=== PATIENT | male | born 1990 | race Caucasian/White ===

== ENCOUNTER 2018-04-18 12:18 | Emergency (ER) | payer SELFPAY ==
[~2018-04-18] VITALS: Ht 165.1 cm; Wt 86.2 kg
[2018-04-18 12:45] VITALS: BP 160/99
[2018-04-18 13:40] LABS: Basophils # (auto) 0 uL; Basophils % (auto) 0.2 % (0.0-2.0); Eosinophils # (auto) 0 uL; Hemoglobin 15.5 g/dL (13.5-17.5); Lymphocytes # (auto) 0.5 uL; Mean Corpuscular Hemoglobin 30.7 pg (28.0-32.0); Mean Corpuscular Hgb Conc. 34.4 g/dL (32.0-36.0); Mean Corpuscular Volume 89.2 fL (80.0-100.0); Monocytes # (auto) 0.8 uL; Monocytes % (auto) 6.2 % (0.0-12.0); Neutrophils % (auto) 89.6 % (37.0-80.0); Nucleated Red Blood Cells % 0.1 %; Platelet Count (auto) 195 10^3/uL (140-450); Red Blood Cells 5.04 10^6/uL (4.5-5.90); Red Cell Distribution Width 15.5 % (11.8-14.3); White Blood Cell 12.3 10^3/uL (4.4-10.8)
[2018-04-18 13:52] LABS: Alanine Aminotransferase 63 U/L (16-61); Albumin 4.3 g/dL (3.4-5.0); Anion Gap 7 (5-15); Aspartate Aminotransferase 46 U/L (15-37); BUN/Creatinine Ratio 12.5; Blood Alcohol < 3.0 mg/dL (0-5); Blood Urea Nitrogen 12 mg/dL (7-18); Calcium 8.7 mg/dL (8.5-10.1); Carbon Dioxide 28 mmol/L (21-32); Chloride 103 mmol/L (98-107); GFR African American 119 mL/min; GFR Non-African American 98 mL/min; Glucose 111 mg/dL (74-106); Sodium 138 mmol/L (136-145)
[2018-04-18 13:55] LABS: Alkaline Phosphatase 46 U/L (45-117); Bilirubin, Total 0.7 mg/dL (0.2-1.0); Total Protein 7.8 g/dL (6.4-8.2)
== END 2018-04-18 21:39 | disposition left against medical advice (07) ==
LOC: ER 12:22
DX: R56.9 Unspecified convulsions (principal); R51 Headache; Z53.21 Procedure and treatment not carried out due to patient leaving prior to being seen by health care provider
CPT/HCPCS: 36415; 70450; 80053; 80320; 85025

== ENCOUNTER 2025-04-12 20:11 | Emergency (ER) | payer MEDICAID ==
[~2025-04-12] VITALS: Ht 165.1 cm; Wt 75.8 kg
--- NOTE | 2025-04-12 21:12 | DVH ---
EXAM: CT HEAD WITHOUT CONTRAST INDICATION: EYE SWELLING TECHNIQUE: CT of the head without intravenous contrast. Radiation Dose : 1. Head: CT Dose: CTDI volume is 60.5 mGy. Dose-length product is 1192.8 mGy*cm The dose indicators for CT are the volume Computed Tomography (CT) Dose Index (CTDIvol) and the Dose Length Product (DLP), and are measured in units of mGy and mGy-cm, respectively. These indicators are not patient dose, but values generated from the CT scanner acquisition factors. The report includes radiation exposure data for exposures received during this examination. COMPARISON: None FINDINGS: The cerebral parenchyma appears to be normal configuration and attenuation. The ventricles, cisterns, and sulci appear age-appropriate. There is no evidence for acute territorial infarct, hemorrhage, or mass effect. There is an acute inferior left orbital blowout fracture with herniation of orbital contents and the inferior rectus muscle. There is an acute fracture through the lateral wall of the left maxillary sinus. Blood products layer within the left maxillary antrum. There is mild left proptosis and left concha orbital swelling. There is left retrobulbar stranding/blood products. Scattered gas is seen in the region of the left orbit. IMPRESSION: 1. No acute intracranial hemorrhage. 2. Acute left inferior orbital blowout fracture with presumed entrapment of the left inferior rectus muscle. Left retrobulbar stranding/ hemorrhage is seen along with mild left proptosis. Correlation with emergent ophthalmologic examination is suggested. 3. Additional findings as detailed. Radiation optimization: All CT scans at this facility use at least one of these dose optimization techniques: automated exposure control mA and/or kV adjustment per patient size (includes targeted exams where dose is matched to clinical indication) or iterative reconstruction.
--- NOTE | 2025-04-12 22:12 | ED.PDOC ---
History of Present Illness HPI Comments 34-year-old male who came to ER for eye problems. Patient has history of chronic alcoholism and seizures. States last seizure episode was 3 months ago, and he does not take any seizure medications. States last alcohol drink was last night. Patient was asleep when he woke up with left periorbital pain and s welling. Patient states he possibly had a seizure episode when he was asleep. Patient complaining of left eye pain and left-sided headaches, with nausea and vomiting Chief Complaint: Eye Problem Time Seen by MD: 22:12 Primary Care Provider: NONE Reviewed Notes: Nurses Notes Allergies: Coded Allergies: NO KNOWN ALLERGIES (Unverified , 04/18/18) Information Source: Patient Mode of Arrival: Ambulatory Past Medical History PAST MEDICAL HISTORY: Seizures Past Medical History (Other): Chronic alcoholism Surgical History: Denies all surgeries Family History Family History: Reviewed,noncontributory to illness Social History Smoker: Non-Smoker Alcohol: Heavy Drugs: Denies Drug Use Lives In: Home Constitutional: denies: chills, diaphoresis, fatigue, fever, malaise, sweats, weakness, others EENTM: reports: eye pain (Left), eye redness (Left); denies: blurred vision, double vision, ear bleeding, ear discharge, ear drainage, ear pain, ear ringing, hearing loss, mouth pain, mouth swelling, nasal discharge, nose bleeding, nose congestion, nose pain, photophobia, tearing, throat pain, throat swelling, voice changes, others Respiratory: denies: cough, hemoptysis, orthopnea, SOB at rest, shortness of breath, SOB with excertion, stridor, wheezing, others Cardiovascular: denies: chest pain, dizzy spells, diaphoresis, Dyspnea on exertion, edema, irregular heart beat, left arm pain, lightheadedness, palpitations, PND, syncope, others Gastrointestinal: denies: abdomen distended, abdominal pain, blood streaked bowels, constipated, diarrhea, dysphagia, difficulty swallowing, hematemesis, melena, nausea, poor appetite, poor fluid intake, rectal bleeding, rectal pain, vomiting, others Genitourinary: denies: burning, dysuria, flank pain, frequency, hematuria, incontinence, penile discharge, penile sore, pain, testicle pain, testicle swelling, urgency, others Neurological: denies: dizziness, fainting, headache, left sided numbness, left sided weakness, numbness, paresthesia, pre-existing deficit, right sided numbness, right sided weakness, seizure, speech problems, tingling, tremors, weakness, others Musculoskeletal: denies: back pain, gout, joint pain, joint swelling, muscle pain, muscle stiffness, neck pain, others Integumetry: denies: bruises, change in color, change in hair/nails, dryness, laceration, lesions, lumps, rash, wounds, others Allergic/Immunocompromised: denies: Difficulty Healing, Frequent Infections, Hi ves, Itching, others Hematologic/Lymphatic: denies: anemia, blood clots, easy bleeding, easy bruising, swollen glands, others Endocrine: denies: excessive hunger, excessive sweating, excessive thirst, excessive urination, flushing, intolerance to cold, intolerance to heat, unexplained weight gain, unexplained weight loss, others Psychiatric: denies: anxiety, bipolar disorder, depression, hopeless, panic disorder, schizophrenia, sleepless, suicidal, others Physical Exam General Appearance: No Apparent Distress, Normal HEENT: Normal ENT Inspection, Pharynx Normal, TMs Normal, Other (Left periorbital hematoma) Neck: Full Range of Motion, Non-Tender, Normal, Normal Inspection Respiratory: Chest Non-Tender, Lungs Clear, No Accessory Muscle Use, No Respiratory Distress, Normal Breath Sounds Cardiovascular: No Edema, No JVD, No Murmur, No Gallop, Normal Peripheral Pulses, Regular Rate/Rhythm Breast Exam: Deferred Gastrointestinal: No Organomegaly, Non Tender, No Pulsatile Mass, Normal Bowel Sounds, Soft Genitalia: Deferred Pelvic: Deferred Rectal: Deferred Extremities: No calf tenderness, Normal capillary refill, Normal inspection, Normal range of motion, Non-tender, No pedal edema Musculoskeletal : Apperance: Normal Neurologic: Alert, able bodied seaman II-XII nml as Tested, No Motor Deficits, Normal Affect, Normal Mood, No Sensory Deficits Cerebellar Function: Normal Reflexes: Normal Skin: Dry, Normal Color, Warm Lymphatic: No Adenopathy Was a procedure done? Was a procedure done?: No Differential Dx Considerations may include: Chronic alcoholism, seizures, periorbital hematoma, headaches X-Ray, Labs, Meds, VS Vital Signs Date Time Temp Pulse Resp B/P (MAP) Pulse Ox O2 Delivery O2 Flow Rate FiO2 12/27/25 20:13 97.3 112 19 135/104 97 97.3 EXAM: CT HEAD WITHOUT CONTRAST INDICATION: EYE SWELLING TECHNIQUE: CT of the head without intravenous contrast. Radiation Dose : 1. Head: CT Dose: CTDI volume is 60.5 mGy. Dose-length product is 1192.8 mGy*cm The dose indicators for CT are the volume Computed Tomography (CT) Dose Index (CTDIvol) and the Dose Length Product (DLP), and are measured in units of mGy and mGy-cm, respectively. These indicators are not patient dose, but values generated from the CT scanner acquisition factors. The report includes radiation exposure data for exposures received during this examination. COMPARISON: None FINDINGS: The cerebral parenchyma appears to be normal configuration and attenuation. The ventricles, cisterns, and sulci appear age-appropriate. There is no evidence for acute territorial infarct, hemorrhage, or mass effect. There is an acute inferior left orbital blowout fracture with herniation of orbital contents and the inferior rectus muscle. There is an acute fracture through the lateral wall of the left maxillary sinus. Blood products layer within the left maxillary antrum. There is mild left proptosis and left periorbital swelling. There is left retrobulbar stranding/blood products. Scattered gas is seen in the region of the left orbit. IMPRESSION: 1. No acute intracranial hemorrhage. 2. Acute left inferior orbital blowout fracture with presumed entrapment of the left inferior rectus muscle. Left retrobulbar stranding/ hemorrhage is seen along with mild left proptosis. Correlation with emergent ophthalmologic examination is suggested. 3. Additional findings as detailed. Radiation optimization: All CT scans at this facility use at least one of these dose optimization techniques: automated exposure control mA and/or kV adjustment per patient size (includes targeted exams where dose is matched to clinical indication) or iterative reconstruction. Time of 1ST Reevaluation: 22:09 Reevaluation 1ST: Unchanged Patient Education/Counseling: Diagnosis, Treatment Family Education/Counseling: No Family Present SEPSIS Sepsis Screen Date sepsis recognized/suspect: Apr 12, 2025 Time Sepsis recognized/suspect: 2016 Recent Procedure: No On Antibiotic Therapy: No Respiratory Rate >20: No Heart Rate >90: No Temp<36 C (96.8 F) or >38.3 C: No SBP <90 or MAP <65 mmHG: No New Acute Mental Status Change: No Is the patient on CPAP, BIPAP,: No Physician Orders Head Without Contrast (04/12/25 20:27) Complete Blood Count (04/12/25 22:14) Comprehensive Metabolic Panel (04/12/25 22:14) PTPTT (04/12/25 22:14) Urinalysis (04/12/25 22:14) Drug Screen (04/12/25 22:14) Collateral Specialist (04/12/25 22:14) Sodium Chloride 0.9% (04/12/25 22:15) Magnesium (04/12/25 22:14) Blood Alcohol (04/12/25 22:14) Vital Signs Date Time Temp Pulse Resp B/P (MAP) Pulse Ox O2 Delivery O2 Flow Rate FiO2 04/12/25 20:13 97.3 112 19 135/104 97 97.3 Departure 1 Departure Time of Disposition: 22:00 Impression: Primary Impression: Closed blow-out fracture of left orbital floor Additional Impressions: Inferior rectus muscle entrapment, left eye Seizure History of alcohol abuse Disposition: 02 [facility]ORT TERM HOSPITAL Admit to: Med Surg Condition: Guarded Comments 34-year-old male with a history of alcohol abuse and prior seizures now with suspected seizure at home and he hit his left eye area and has severe pain. There is bruising noted and subconjunctival hemorrhage. He gets double vision when he tries to move the eye. CT of the scan shows left orbital blowout fracture and there is entrapment of the left inferior rectus muscle. I contacted [facility] and discussed the case with Dr. Marr who accepts the patient for transfer. He will need to be transferred for Ophthalmology and trauma consultation Critical Care Note Critical Care Time?: Yes (35 min-critical care time only) Critical care comment: Total critical care time: Approximately 36 minutes Due to a high probability of clinically significant, life threatening deteriorat ion, the patient required my highest level of preparedness to intervene emergently and I personally spent this critical care time directly and personally managing the patient. This critical care time included obtaining a history; examining the patient; pulse oximetry; ordering and review of studies; arranging urgent treatment with development of a management plan; evaluation of patient's response to treatment; frequent reassessment; and, discussions with other providers. This critical care time was performed to assess and manage the high probability of imminent, life-threatening deterioration that could result in multi-organ failure. It was exclusive of separately billable procedures and treating other patients. Stability Stability form required: No Heart Score Heart Score: Heart Score Response (Comments) Value History N/A 0 EKG N/A 0 Age N/A 0 Risk Factors N/A 0 Troponin N/A 0 Total 0 I personally scribed for JACKIE AMBROSE MD ([email or web address]) on 04/12/25 at 22:12. Electronically submitted by Markus Oakley ([email or web address]). I personally scribed for JACKIE AMBROSE MD ([email or web address]) on 04/12/25 at 22:13. Electronically submitted by Markus Oakley ([email or web address]). JACKIE AMBROSE MD Apr 12, 2025 22:12
[2025-04-12 22:50] LABS: Hematocrit 40.3 % (41.0-53.0); Hemoglobin 13.6 g/dL (13.5-17.5); Mean Corpuscular Hemoglobin 27.7 pg (28.0-32.0); Mean Corpuscular Volume 82.2 fL (80.0-100.0); Nucleated Red Blood Cells % 0.1 %
[2025-04-12 23:04] LABS: INR 1.05 (0.9-1.15); Partial Thromboplastin Time 23.8 SEC (24.5-34.5); Prothrombin Time 11.1 sec (9.3-11.8)
[2025-04-12 23:11] LABS: Albumin 4.8 g/dL (3.2-4.8); Alkaline Phosphatase 47 U/L (46-116); Anion Gap 14 (5-15); BUN/Creatinine Ratio 7.0 (10.0-20.0); Calcium 9.8 mg/dL (8.7-10.4); Carbon Dioxide 23 mmol/L (20-31); Chloride 106 mmol/L (98-107); Magnesium 1.8 mg/dL (1.6-2.6); Potassium 4.3 mmol/L (3.5-5.1); Sodium 143 mmol/L (136-145); Total Protein 7.9 g/dL (5.7-8.2)
[2025-04-12 23:12] LABS: Bilirubin, Total 0.3 mg/dL (0.2-1.0)
[2025-04-12 23:16] LABS: Alanine Aminotransferase 43 U/L (7-40); Blood Urea Nitrogen 7 mg/dL (9-23); Glucose 139 mg/dL (74-106)
[2025-04-13] MEDS: LORazepam 2MG/ML-1ML VIAL IV ONE (00:01)
[2025-04-13] MEDS: SODIUM CHLORIDE 0.9% 1,000 ML IVB ONE (00:02)
[2025-04-13 00:32] VITALS: BP 124/74; PULSE 75; RESP 18; TEMP 97.8; O2SAT 98
== END 2025-04-13 00:39 | disposition short-term general hospital (02) ==
LOC: ER 20:11
DX: S02.32XA Fracture of orbital floor, left side, initial encounter for closed fracture (principal); H50.632 Inferior rectus muscle entrapment, left eye; R56.9 Unspecified convulsions; F10.20 Alcohol dependence, uncomplicated; X58.XXXA Exposure to other specified factors, initial encounter; Y93.89 Activity, other specified; Y92.89 Other specified places as the place of occurrence of the external cause; Y99.8 Other external cause status
CPT/HCPCS: 36415; 70450; 80053; 80320; 83735; 85025; 85610; 85730; 96361; 96374; 99291; J2060; J7030